=== PATIENT | male | born 1990 | race American Indian/Alaskan Native ===

== ENCOUNTER 2017-11-26 14:30 | Emergency (ER) | payer SELFPAY ==
[2017-11-26 14:57] VITALS: BP 126/91
--- NOTE | 2017-11-26 17:50 | Emergency Department Report ---
Chief Complaint: Skin Rash Stated Complaint: RASH Time Seen by Provider: 11/26/17 17:40 - HPI History of Present Illness: 27-year-old -[place] male comes in for very vague symptoms. Patient reports that he had genital herpes in the past, he was diagnosed with possible oral tinea. He is concerned that his tongue is white and he had been diagnosed with contact dermatitis and wanted a second opinion. - Exam Vital Signs: Vital Signs 11/26/17 14:52 Temperature 98.3 F Pulse Rate 64 Respiratory 20 Rate Blood Pressure 126/91 O2 Sat by Pulse 100 Oximetry Physical Exam: Patient is alert and oriented 3 Oral moist nor oral lack or rash on tongue or oral mucosa. Skin. No acute rashes MSE screening note: Focused history and physical exam performed. Due to findings the following was ordered: Scars of patient he should follow up with [facility] as he has no emergent issues at this time. ED Disposition for MSE Condition: Stable Referrals: PRIMARY CARE, [Primary Care Provider] - 3-5 Days
== END 2017-11-26 17:47 | disposition left against medical advice (07) ==
LOC: ED 14:30
DX: R21 Rash and other nonspecific skin eruption (principal); Z53.21 Procedure and treatment not carried out due to patient leaving prior to being seen by health care provider

== ENCOUNTER 2018-02-20 19:38 | Emergency (ER) | payer SELFPAY ==
[2018-02-20 19:58] VITALS: BP 130/74
== END 2018-02-20 23:00 | disposition left against medical advice (07) ==
LOC: ED 19:38
DX: H92.01 Otalgia, right ear (principal); Z53.21 Procedure and treatment not carried out due to patient leaving prior to being seen by health care provider

== ENCOUNTER 2019-05-05 13:35 | Emergency (ER) | payer SELFPAY ==
[2019-05-05 13:52] VITALS: BP 129/65
--- NOTE | 2019-05-05 16:04 | Emergency Department Report ---
Abscess Boil HPI - HPI Chief Complaint: Skin/Abscess/Foreign Body Stated Complaint: BOIL Time Seen by Provider: 05/05/19 15:22 Duration: 5 Days Location: Other (buttocks) Severity: Mild History: Yes Pain, No Fever, No Purulent Drainage, No Numbness, No Foreign Body, No Previous History, No Insect Bite HPI: This is a 28-year-old male presents to ED complaining of fall painful mass to the left buttock area for the past 5 days. Patient states is putting some warm compress on it and started to pus draining 2 days ago. Patient denies fevers/chills/nausea vomiting Home Medications: Previous Rx's Medication Instructions Recorded Last Taken Type Clindamycin [Clindamycin CAP] 300 mg PO Q8H #21 cap 05/05/19 Unknown Rx Ibuprofen [Motrin 800 MG tab] 800 mg PO TID #30 tablet 05/05/19 Unknown Rx Sulfamethoxazole/Trimethoprim 1 each PO BID #10 tablet 05/05/19 Unknown Rx [Bactrim DS TAB] Allergies/Adverse Reactions: Allergies Allergy/AdvReac Type Severity Reaction Status Date / Time No Known Allergies Allergy Unverified 11/26/17 14:52 ED Review of Systems ROS: Stated complaint: BOIL Other details as noted in HPI Comment: All other systems reviewed and negative ED Past Medical Hx - Past Medical History Additional medical history: BRONCHITIS, GENITALHERPES - Social History Smoking Status: Current Every Day Smoker Substance Use Type: Alcohol - Medications Home Medications: Home Medications Medication Instructions Recorded Confirmed Last Taken Type Clindamycin [Clindamycin CAP] 300 mg PO Q8H #21 cap 05/05/19 Unknown Rx Ibuprofen [Motrin 800 MG tab] 800 mg PO TID #30 tablet 05/05/19 Unknown Rx Sulfamethoxazole/Trimethoprim 1 each PO BID #10 tablet 05/05/19 Unknown Rx [Bactrim DS TAB] ED Abscess Boil Physical Exam - Exam General: Vital signs noted. No distress. Alert and acting appropriately. Front/Back of Body, Lg (Color): 1 - left 4 cm buttock abscess draining copius pus d/c Size: 4 cm Exam: Yes Tenderness, Yes Fluctuance, Yes Normal Neurologic Exam, Yes Normal Circulation, No Surrounding Cellulites/Erythema, No Lymphangitis, No Crepitation, No Heart Murmur Exam: Left sided buttock abscess already draining copious discharge. ED Course Vital Signs 05/05/19 13:39 Temperature 98.5 F Pulse Rate 96 H Respiratory 18 Rate Blood Pressure 129/65 O2 Sat by Pulse 99 Oximetry Critical care attestation.: If time is entered above; I have spent that time in minutes in the direct care of this critically ill patient, excluding procedure time. ED Medical Decision Making - Medical Decision Making 28-year-old male presents with draining left buttock abscess. Abscesses retreating patient declined to have an I&D performed. Patient states he would just take the antibiotics I discussed the patient to continue warm compresses expression out the discharge. Patient sentiments antibiotics and pain medication. Discussed follow-up in 3-5 days for wound check. Vital signs are normal patient is in no acute distress ED Disposition Clinical Impression: Cellulitis of buttock, left Disposition: [id number] TO HOME OR SELFCARE Is pt being admited?: No Does the pt Need Aspirin: No Condition: Stable Instructions: Abscess (ED) Additional Instructions: Make sure to follow up with the primary care physician as discussed. Make sure to follow-up in 3-5 days for wound check Take all your medications as you've been prescribed. If you have any worsening symptoms or develop new symptoms please return to ED immediately. Prescriptions: Sulfamethoxazole/Trimethoprim [Bactrim DS TAB] 1 each PO BID #10 tablet Clindamycin [Clindamycin CAP] 300 mg PO Q8H #21 cap Ibuprofen [Motrin 800 MG tab] 800 mg PO TID #30 tablet Referrals: [facility] [address] [Outside] - 3-5 Days [facility] [Outside] - 3-5 Days Forms: Work/School Release Form(ED) Time of Disposition: 16:50
[2019-05-05] MEDS ORDERED: BACTRIM DS PO ONE (16:15)
[2019-05-05] MEDS ORDERED: IBUPROFEN PO ONE (16:15)
== END 2019-05-05 17:46 | disposition home or self-care (01) ==
LOC: ED 13:35
DX: L03.317 Cellulitis of buttock (principal); F17.200 Nicotine dependence, unspecified, uncomplicated